=== PATIENT | female | born 1985 | race Two or more races ===

== ENCOUNTER 2018-12-17 23:32 | Emergency (ER) | payer SELFPAY ==
--- NOTE | 2018-12-18 01:08 | ER Document Report ---
ED GI/ - General Chief Complaint: Abdominal Pain Stated Complaint: ABDOMINAL PAIN Time Seen by Provider: 12/18/18 00:48 Notes: Patient is a 33-year-old female that comes to the emergency department for chief complaint of generalized abdominal pain worse on the right side, she states that pain is not severe but she did a positive home test at home so she became concerned. She denies bleeding, vomiting, fever, dysuria, vaginal dis charge. She states she is constipated and has trouble moving her bowels. She denies any surgeries, this is her first . Medications include Paxil, Ativan, Adderall, Vraylar. TRAVEL OUTSIDE OF THE [place] IN LAST 30 DAYS: No - Related Data Allergies/Adverse Reactions: No Known Allergies Allergy (Verified 12/17/18 23:39) Past Medical History - General Information source: Patient - Social History Smoking Status: Never Smoker Frequency of alcohol use: None Drug Abuse: None Lives with: Family Family History: Reviewed & Not Pertinent Psychiatric Medical History: Reports: Hx Anxiety, Hx Attention Deficit Hyperactivity Disorder, Hx Depression Surgical Hx: Negative - Immunizations Immunizations up to date: Yes Hx Diphtheria, Pertussis, Tetanus Vaccination: Yes Review of Systems - Review of Systems Constitutional: No symptoms reported EENT: No symptoms reported Cardiovascular: No symptoms reported Respiratory: No symptoms reported Gastrointestinal: See HPI Genitourinary: See HPI Female Genitourinary: See HPI Musculoskeletal: No symptoms reported Skin: No symptoms reported Hematologic/Lymphatic: No symptoms reported Neurological/Psychological: No symptoms reported Physical Exam - Vital signs Vitals: Temp Pulse Resp BP Pulse Ox 100.3 F 102 H 20 144/92 H 99 12/17/18 23:41 12/17/18 23:41 12/17/18 23:41 12/17/18 23:41 12/17/18 23:41 - Notes Notes: GENERAL: Alert, interacts well. No acute distress. HEAD: Normocephalic, atraumatic. EYES: Pupils equal, round, and reactive to light. Extraocular movements intact. ENT: Oral mucosa moist, tongue midline. Oropharynx unremarkable. Airway patent. LUNGS: Clear to auscultation bilaterally, no wheezes, rales, or rhonchi. No respiratory distress. HEART: Regular rate and rhythm. No murmur ABDOMEN: Very minimal generalized tenderness over the abdomen, slightly worse on the right, nonspecific, no guarding, no rigidity. Bowel sounds present. GENITOURINARY: Deferred EXTREMITIES: Moves all 4 extremities spontaneously. No edema, normal radial and dorsalis pedis pulses bilaterally. No cyanosis. BACK: no cervical, thoracic, lumbar midline tenderness. No saddle anesthesia, normal distal neurovascular exam. Moves all extremities in full range of motion. NEUROLOGICAL: Alert and oriented x3. Normal speech. Cranial nerves II through XII grossly intact. PSYCH: Normal affect, normal mood. SKIN: Warm, dry, normal turgor. No rashes or lesions noted. Course - Re-evaluation Re-evalutation: On my evaluation patient is smiling, well-appearing, has a soft benign abdomen with minimal tenderness in the right mid to lower abdomen. She is not tachycardic. Vital signs recorded as temperature of 100.3 with tachycardia, however I rechecked patient's temperature at bedside and it is 97.6 and she is not tachycardic on exam. I have asked to repeat vital signs because I believe these were entered incorrectly. RhoGam is not indicated. CBC, chemistry nonspecific. Urinalysis shows possible infection with some contamination. Ultrasound showing IUP at 14 weeks with no complications. Suspect patient has a combination of cramping from , UTI, constipation based on her reported symptoms. Very low suspicion of acute abdomen. Patient remains extremely well-appearing. Treating with antibiotics, discussed stool softener use, discussed regnancy and provided her with a copy of her report for proof of . Discussed follow-up. Patient states she will call her psychiatrist tomorrow to have her medications adjusted for . Patient and mother state understanding and agreement. Stable time of discharge. - Vital Signs Vital signs: Temp Pulse Resp BP Pulse Ox 97.9 F 86 16 129/87 H 100 12/18/18 03:20 12/18/18 03:20 12/18/18 03:20 12/18/18 03:20 12/18/18 03:20 - Laboratory Result Diagrams: 12/18/18 01:20 12/18/18 01:20 Laboratory results interpreted by me: 12/18/18 12/18/18 12/18/18 01:10 01:20 01:20 Hct 35.8 L MCV 74 L MCH 25.2 L RDW 14.8 H Sodium 136.6 L Beta HCG, Quant 84344.00 H Ur Leukocyte Esterase SMALL H Discharge - Discharge Clinical Impression: Abdominal pain Qualifiers: Abdominal location: generalized Qualified Code(s): R10.84 - Generalized abdominal pain Condition: Stable Disposition: HOME, SELF-CARE Additional Instructions: Your work-up shows a living in the uterus at 14 weeks. Your blood type is O+. Take the antibiotics as prescribed for the urinary tract infection. I recommend a stool softener such as Colace if needed for constipation. Drink plenty fluids and rest. Please follow closely with your psychiatrist to have your medications adjusted for optimal treatment in . Return for any concerning symptoms including severe pain, vomiting, fever, or any other concerning symptoms. Prescriptions: Cephalexin Monohydrate [Keflex 500 mg Capsule] 500 mg PO BID 7 Days #14 capsule
[2018-12-18 01:47] LABS: ABSOLUTE EOSINOPHILS # (AUTO) 0.2 10^3/uL (0.0-0.6); ABSOLUTE LYMPHOCYTES (AUTO) 1.6 10^3/uL (0.5-4.7); ABSOLUTE MONOCYTES (AUTO) 0.4 10^3/uL (0.1-1.4); BASOPHILS % (AUTO) 0.6 % (0-2); EOSINOPHILS % (AUTO) 2.1 % (0-6); HEMATOCRIT 35.8 % (36.0-47.0); HEMOGLOBIN 12.2 g/dL (12.0-15.5); LYMPHOCYTES % (AUTO) 19.3 % (13-45); MEAN CORPUSCULAR HEMOGLOBIN 25.2 pg (27.0-33.4); MEAN CORPUSCULAR VOLUME 74 fl (80-97); MONOCYTES % (AUTO) 4.9 % (3-13); PLATELET COUNT 247 10^3/uL (150-450); RED BLOOD COUNT 4.84 10^6/uL (3.72-5.28); RED CELL DISTRIBUTION WIDTH 14.8 % (11.5-14.0); SEGMENTED NEUTROPHILS % (AUTO) 73.1 % (42-78); TOTAL CELLS COUNTED % (AUTO) 100 %; WHITE BLOOD COUNT 8.1 10^3/uL (4.0-10.5)
[2018-12-18 01:57] LABS: APPEARANCE,URINE SLIGHTLY-CLOUDY; BILIRUBIN,URINE NEGATIVE (NEGATIVE); COLOR,URINE YELLOW; GLUCOSE, URINE NEGATIVE (NEGATIVE); KETONES,URINE NEGATIVE (NEGATIVE); LEUKOCYTE ESTERASE,URINE SMALL (NEGATIVE); NITRITE,URINE NEGATIVE (NEGATIVE); PROTEIN,URINE NEGATIVE (NEGATIVE); URINE SPECIFIC GRAVITY 1.023; UROBILINOGEN,URINE NEGATIVE mg/dL (<2.0)
[2018-12-18 02:02] LABS: ALBUMIN 3.8 g/dL (3.5-5.0); ALKALINE PHOSPHATASE 71 U/L (38-126); ANION GAP 11 (5-19); ASPARTATE AMINO TRANSFERASE 23 U/L (14-36); BILIRUBIN,DIRECT 0.1 mg/dL (0.0-0.4); BILIRUBIN,TOTAL 0.3 mg/dL (0.2-1.3); BLOOD UREA NITROGEN 10 mg/dL (7-20); CALCIUM 9.2 mg/dL (8.4-10.2); CARBON DIOXIDE 22 mmol/L (22-30); CHLORIDE 104 mmol/L (98-107); GLUCOSE 93 mg/dL (75-110); POTASSIUM 3.8 mmol/L (3.6-5.0); TOTAL PROTEIN 7.2 g/dL (6.3-8.2)
--- NOTE | 2018-12-18 02:49 | RADIOLOGY REPORT (SQ) ---
EXAM DESCRIPTION: US LIMITED COMPLETED DATE/TME: 12/18/2018 01:03 CLINICAL HISTORY: 33 years, Female, abd pain, unknown status COMPARISON: None. TECHNIQUE: LIMITATIONS: None. FINDINGS: There is a live 14 +/- 1 week IUP in vertex presentation. cardiac activity was measured at 163 bpm. The placenta is posterofundal in location with no evidence of abruption or previa. There is a normal amount of amniotic fluid. The cervix measures 3.7 cm in length and is closed. IMPRESSION: Unremarkable IUP. copyright 2010 [facility] [employer]- All Rights Reserved
[2018-12-18] MEDS ORDERED: CEPHALEXIN 500 MG CAPSULE PO ONE (03:09)
[2018-12-18 03:23] VITALS: BP 129/87
== END 2018-12-18 03:22 | disposition home or self-care (01) ==
LOC: ER 23:32
DX: O26.891 Other specified pregnancy related conditions, first trimester (principal); R10.84 Generalized abdominal pain; R10.817 Generalized abdominal tenderness; O99.341 Other mental disorders complicating pregnancy, first trimester; F41.9 Anxiety disorder, unspecified; F90.9 Attention-deficit hyperactivity disorder, unspecified type; F32.9 Major depressive disorder, single episode, unspecified; Z79.899 Other long term (current) drug therapy; Z3A.14 14 weeks gestation of pregnancy; Z88.8 Allergy status to other drugs, medicaments and biological substances
CPT/HCPCS: 36415; 76815; 80053; 81001; 84702; 85025; 86900; 86901